=== PATIENT | female | born 1980 | race Caucasian/White ===

== ENCOUNTER 2021-07-21 01:32 | Emergency (ER) | payer OTHER ==
[~2021-07-21] VITALS: Ht 172.7 cm; Wt 95.7 kg
[2021-07-21] MEDS ORDERED: ONDANSETRON ODT4 MG PO (04:28)
[2021-07-21] MEDS ORDERED: OXYCODONE HCL5 MG PO (04:28)
[2021-07-22] MEDS ORDERED: HYDROXYZINE HCL50 MG PO (11:52)
== END 2021-07-21 04:55 | disposition home or self-care (01) ==
LOC: ED 01:32
DX: K80.20 Calculus of gallbladder without cholecystitis without obstruction (principal)
CPT/HCPCS: 36415; 76705; 80053; 81001; 83690; 84703; 85025; 96374; 96375; 99284-25; J2270; J2405

== ENCOUNTER 2021-07-22 11:30 | Observation (INO) | payer OTHER ==
[~2021-07-22] VITALS: Ht 170.2 cm; Wt 94.7 kg
--- NOTE | ~2021-07-22 | OR ---
[facility] [address], [place] [address] Draft DATE OF OPERATION: 07/23/2021 SURGEON: Marcia Tabares MD PREOPERATIVE DIAGNOSIS: Acute calculous cholecystitis. POSTOPERATIVE DIAGNOSIS: Acute calculous cholecystitis. PROCEDURE: 1. Laparoscopic cholecystectomy with intraoperative cholangiogram. 2. Surgeon-directed fluoroscopy. ANESTHESIA: General endotracheal, Augustin Alyson, NEEDLE FELT MAKING MACHINE OPERATOR, and local 20 mL of 0.25% Marcaine with epinephrine. INDICATIONS: This 41-year-old white woman presented to the emergency room for the 2nd time in 48 hours yesterday with severe right upper abdominal pain. She has known to have gallstones. Repeat gallbladder ultrasound confirms stones, thickened gallbladder wall, and findings consistent with acute calculous cholecystitis. She has been fluid resuscitated, given intravenous antibiotics, pain medication, so for now is to undergo cholecystectomy preferred by laparoscopic approach. The risks of bleeding, infection, bile duct injury, need for open procedure and need for other indicated procedures were reviewed in detail with her. She understands and wished to proceed. FINDINGS: The gallbladder was quite markedly inflamed and edematous. Once excised, multiple small and moderate-sized gallstones were noted. Cholangiogram was normal. The liver was normal. The operation proceeded without problem. DESCRIPTION OF PROCEDURE: The patient was brought to the operating room, given a general endotracheal anesthetic. Preoperative antibiotic Ancef had been given. Sequential compression device stockings were used and heparin subcutaneously administered. The abdomen was prepared with a chlorhexidine solution and draped sterilely. An infraumbilical incision was made and using an open Delphine cannula technique, pneumoperitoneum was achieved to a level of 14 mmHg of carbon dioxide gas. Intra-abdominal inspection showed no sign of ascites or PATIENT NAME: NATACHA BHAT OPERATIVE REPORT DATE OF : [birth year] REPORT #: [id number] PHYSICIAN: MARCIA TABARES MD PCP: JEANNE GONZALES PAC REPORT IS CONFIDENTIAL AND NOT TO BE RELEASED WITHOUT AUTHORIZATION [facility] [address], [place] [address] Draft carcinomatosis. The liver appeared normal. The gallbladder was distended and markedly edematous. Three additional trocars were placed in usual configuration in the subxiphoid, right midclavicular, and right anterior axillary line. The gallbladder was elevated cephalad and retracted laterally. Good visualization of the anatomy was noted. Using blunt and electrocautery dissection, very edematous peritoneum overlying the infundibulum was dissected free ultimately identifying the cystic duct and the cystic arterial branch as well. Once the cystic duct was cleared, a clip was applied across gallbladder cystic duct junction and transverse choledochotomy was made in the cystic duct. Egress of clear bile was noted. Using an Loera type cholangiocatheter, intraoperative cholangiography was undertaken showing free flow of contrast into the biliary tree with prompt emptying into the duodenum. Additional angles were used to assure that there was no sign of filling defect in the duct as the cholangiocatheter apparatus did obscure the duct in several places at some point. The cholangiogram was thus found to be totally normal. The catheter was removed and the cystic duct was quadruply clipped and divided and the gallbladder dissected free in a retrograde fashion using electrocautery. The gallbladder was placed in an Endobag and extracted through the infraumbilical port site and opened on the back table and found to have chronic inflammatory change of the mucosa as well as acute inflammation as well as a moderate sized multifaceted gallstones. Irrigation was undertaken in the subhepatic space. There was no sign of bile leak, bleeding, or other problems. Excess irrigation fluid was suctioned free. The trocars removed under direct visualization. The right midclavicular trocar site had a small amount of oozing, which was secured with cautery. Once hemostasis was assured in all trocar sites, pneumoperitoneum was relieved. The infraumbilical fascial incision was reapproximated with interrupted 0 Vicryl suture. All wounds were infiltrated with 0.25% Marcaine with epinephrine. The skin was closed with interrupted 3-0 Vicryl and Steri-Strips were applied. The patient was ultimately extubated and transported to the recovery room in good condition having suffered no complications. Sponge, needle, and instrument counts reported as correct x3. Marcia Tabares MD PATIENT NAME: NATACHA BHAT OPERATIVE REPORT DATE OF : [birth year] REPORT #: [id number] PHYSICIAN: MARCIA TABARES MD PCP: JEANNE GONZALES PAC REPORT IS CONFIDENTIAL AND NOT TO BE RELEASED WITHOUT AUTHORIZATION [address] [address] Draft /[facility] /[id number] cc: NABOR Tavares MD Copies: PATRICE LONG MD ~ PATIENT NAME: NATACHA BHAT OPERATIVE REPORT DATE OF : [birth year] REPORT #: [id number] PHYSICIAN: MARCIA TABARES MD PCP: JEANNE GONZALES PAC REPORT IS CONFIDENTIAL AND NOT TO BE RELEASED WITHOUT AUTHORIZATION
--- NOTE | ~2021-07-22 | DS ---
[facility] [address], [place] [address] Draft ADMISSION DATE: 07/22/2021 DISCHARGE DATE: 07/24/2021 REASON FOR ADMISSION: This 41-year-old woman works at the [employer] and presented to the emergency room for the second time in two days with complaints of severe right upper abdominal pain. She was evaluated by Dr. Schulte, who performed ultrasound confirming once again well-established gallstones. She is admitted for further evaluation and care. PERTINENT PHYSICAL EXAMINATION: GENERAL: A pleasant woman, who looked to be in rather significant distress. NECK: Trachea is midline. CHEST: Clear. HEART: Regular without murmur. ABDOMEN: Tender in the right upper abdomen. There is no palpable mass. No ascites. HOSPITAL COURSE: She was admitted, given intravenous fluid resuscitation, IV antibiotics, and maintain n.p.o. status. She did have some anxiety, which was well managed with Ativan. On July 23, 2021, she underwent laparoscopic cholecystectomy with intraoperative cholangiogram. She was found to have a markedly edematous and inflamed gallbladder. Cholangiogram was normal. She tolerated the procedure well. She had progressive improvement postoperatively, tolerating a regular diet, ultimately able to be discharged. DISCHARGE MEDICATION: 1. Percocet 7.5/325; 1-2 p.o. q.6 hours p.r.n. pain, #10. 2. Tylenol Extra Strength 1000 mg p.o. q.6 hours as needed for pain, #30. 3. Motrin 600 mg p.o. q.6 hours as needed for pain, #60. She will continue with the usual medication of: 1. Hydroxyzine 50 mg one-half to 1 at bedtime as needed for sleep anxiety. 2. Magnesium oxide 400 mg daily as needed. FOLLOWUP PLANS: She will call on Tuesday to set up an appointment to see me back in a month or so. She is advised to lift no more than 20 pounds for the next two weeks. She will keep Steri-Strips on. She is permitted to shower tomorrow. PATIENT NAME: NATACHA BHAT DISCHARGE SUMMARY DATE OF : [birth year] REPORT #: [id number] PHYSICIAN: MARCIA TABARES MD PCP: JEANNE GONZALES PAC REPORT IS CONFIDENTIAL AND NOT TO BE RELEASED WITHOUT AUTHORIZATION [address] [address] Draft DISCHARGE DIAGNOSES: 1. Acute calculous cholecystitis, chronic recurrent biliary colic, and ultimately acute calculous cholecystitis. 2. Anxiety disorder. MD CORRY Boyer/AMBROSIO /[id number] cc: Ramone Schulte MD Copies: RAMONE SCHULTE MD ~ PATIENT NAME: NATACHA BHAT DISCHARGE SUMMARY DATE OF : [birth year] REPORT #: [id number] PHYSICIAN: MARCIA TABARES MD PCP: JEANNE GONZALES PAC REPORT IS CONFIDENTIAL AND NOT TO BE RELEASED WITHOUT AUTHORIZATION
[~2021-07-22 11:30] MED LIST: ONDANSETRON ODT4 MG PO; OXYCODONE HCL5 MG PO
--- OUTSIDE RECORDS SUMMARY | 2021-07-22 11:38 | XMS ---
PreManage Notification: NATACHA BHAT Security Rn Vascular Events No recent Security Events currently on file CRITERIA MET - [facility] - 2 Visits in 30 Days CARE PROVIDERS [employer] Physician Service Tech Current PHONE: Unknown Jung has no Care Guidelines for this patient. E.Dave VISIT COUNT ([address] [facility] TOTAL 2 NOTE: Visits indicate total known visits. ED/UCC VISIT TRACKING (12 MO.) 07/22/2021 11:31 [facility] [place] TYPE: Emergency COMPLAINT: - ABDOMINAL PAIN, NAUSEA 07/21/2021 01:33 [facility] [place] TYPE: Emergency COMPLAINT: - ABD PAIN, N/V INPATIENT VISIT TRACKING (12 MO.) No inpatient visits to display in this time frame [email or web address]
[2021-07-22] MEDS ORDERED: HYDROXYZINE HCL50 MG PO (11:52)
--- NOTE | 2021-07-22 14:09 | NUR ---
REPORT RECEIVED FROM DUDLEY ROBERTSON. AWAITING PTS ARRIVAL TO MED/SURG
--- NOTE | 2021-07-22 14:19 | NUR ---
PT ARRIVED TO MED/SURG. PT STANDS AND AMBULATE FROM [place] TO RESTROOM AND THEN TO BED. PT STEADY ON FEET, NO ASSISTANCE NEEDED. PT REPROTS 4/10 "JUST NAGGING" PAIN IN RIGHT UPPER QUADRANT AT THIS TIME. PT DENEIS NEED FOR PAIN MEDICATION. PT REPROTS SHE IS A "LIGHT WEIGHT" AND WANTS VERY LITTLE OPIOID PAIN MEDICATION, HEAT PACK PROVIDED. PT ALERT AND ORDIENTED TO ALL. HEAR TONES REGULAR, LUNG SOUNDS CLEAR. CMS INTACT. ABDOMEN SOFT TO TOUCH BUT TENDER ESPICIALLY ON RIGHT SIDE. BOWEL TONES HEARD BUT HYPOACTIVE. PT REMAINS ON CLEAR LIQUID DIET. PT STARTED PERIOD TODAY, PADS PROVIDED. TATOOS PRESENT BUT SKIN OTHERWISE WNL. DR TABARES'S GALL BADDER PACK PROVIDED AND REIVEWED WITH PT IN DETAIL. PT VERBALIZES UNDERSTANDING AND STATES HER QUESTIONS HAVE BEEN ANSWERED. PT DENIES ADDITIONAL REQUESTS OR COMPLAINTS. CALL LIGHT WITHIN REACH. BED RAILS UP.
--- NOTE | 2021-07-22 14:59 | NUR ---
THIS RN TO ROOM TO CHECK ON PT. PTS BOYFRIEND, KEYONNA, ARRIVED. PT CONTINUES TO REPORT 4/10 PAIN IN RUQ AND BACK WELL MILD NAUSEA. PT CONTINUES TO DECLINE MEDICATION. HEAT PACK IN PLACE. FAMILY UPDATED. NO ADDITIONAL REQUESTS OR COMPLAINTS. CALL LIGHT WIHTIN REACH. BED RAILS UP.
--- NOTE | 2021-07-22 16:41 | NUR ---
THIS RN TO ROOM TO CHECK ON PT. PT REPORTS RUQ PAIN AT 5/10 AND ANXIETY. PT REPORTS THE ANXIETY IS THE "BIGGER PROBLEM" AND STATES IF SHE COULD DEAL WITH THE ANXIETY THE PAIN "WOULD PROBABLY BE BETTER." ATAVAN GIVEN, AT LOW DOSE. PT REPORTS HER AC IV IS "BOTHERING ME." PT REQUESTS A DIFFERENT IV SITE. 20G IV STARTED TO RIGHT HAND, BLOOD RETURN NOTED. IV FLUIDS MOVED TO RIGHT HAND. RIGHT AC IV FLUSHES WELL AND HAS GOOD BLOOD RETURN. R AC IV LEFT IN PLACE, SALINE LOCKED, ALCOHOL CAP APPLIED. PT DENIES NAUSEA. NO ADDITIONAL REQUSTS OR COMPLAINTS. CALL LIGHT WITHIN REACH. BED RAILS UP.
--- NOTE | 2021-07-22 17:50 | NUR ---
PT ADDMITTED THIS SHIFT FOR ACUTE CHOLEYCYSTITIS. CHOLECYSTECTOMY PLANNED FOR TOMORROW. PRN PAIN, ANXIETY AND NAUSEA MEDICATIONS GIVEN. PT UP IN ROOM INDEPENDANTLY. PT TOLERATING CLEAR LIQUID DIET WITH MINMAL APPITITE. ABOMDEN TENDER TO TOUCH WITH 4-5/10 PAIN IN RUQ AND BACK. PT ON HER PERIOD, PADS PROVIDED. PT ANTICIPATING SURGERY TOMORROW. NPO AT MIDNIGHT. PT VOIDING QUANITTY SUFFICIENT. PT USES CALL LIGHT AND MAKES NEEDS KNOWN.
--- NOTE | 2021-07-22 18:13 | NUR ---
THIS RN TO ROOM TO CHECK ON PT. PT RESTING IN BED. PT REPORTS FEELING "MUCH BETTER, THAT MEDICATION REALLY HELPED." PT REPORTS 4/10 RUQ PAIN AND DENIES NEED FOR PAIN MEDICAITON. PT DENIES NAUSEA. PTS DAUGHTER AT BEDSIDE, UPDATED ON PT STATUS AND PLAN OF CARE PER PT AND STATES HER QUESTIONS HAVE BEEN ANSWERED. PT DENIES ADDITIONAL REQUESTS OR COMPLAINTS. CALL LIGHT WITHIN REACH. BED RAILS UP.
--- NOTE | 2021-07-22 18:28 | NUR ---
ranjeet is laying in bed. given warm blanket. i&o and vitals charted. call light within reach. no further tasks at this time
--- NOTE | 2021-07-22 19:33 | NUR ---
IN ROOM FOR REPORT, PT IS AWAKE IN BED. SHE DENIES NEEDS AT THIS TIME. CALL LIGHT IS CLOSE.
--- NOTE | 2021-07-22 21:11 | NUR ---
IN ROOM TO ADMINISTER MEDICATIONS AND ASSESS PT. ADMINISTERED TORADOL FOR 6/10 PAIN. PT DENIES NAUSEA, FRESH ICEWATER PROVIDED TO REMINDED SHE IS NPO AT MIDNIGHT FOR SURGERY TOMORROW. PT DENIES FURTHER NEEDS AT THIS TIME. CALL LIGHT IS CLOSE.
--- NOTE | 2021-07-22 22:15 | NUR ---
IN TO GET VITALS, ICE WATER DONE
--- NOTE | 2021-07-23 00:32 | NUR ---
PT IS RESTING WITH EYES CLOSED, RR IS EVEN AND UNLABORED. CALL LIGHT IS CLOSE AND IV IS INFUSING FINE. WATER TAKEN AWAY FROM BEDSIDE FOR NPO STATUS.
--- NOTE | 2021-07-23 02:44 | NUR ---
PT DENIES PAIN AT THIS TIME, VS ARE WNL. PT ALSO DENIES NAUSEA. IV FLUIDS ARE INFUSING FINE. PT DENIES FURTHER NEEDS, CALL LIGHT IS CLOSE.
--- NOTE | 2021-07-23 04:12 | NUR ---
IN ROOM TO ADMINISTER ANCEF, PT DENIES NEEDS AT THIS TIME. CALL LIGHT IS CLOSE.
--- NOTE | 2021-07-23 05:40 | NUR ---
IN TO GET VITALS, PT UP TO VOID RECENTLY, NO FURTHER NEEDS AT THIS TIME
--- NOTE | 2021-07-23 07:05 | NUR ---
IN ROOM TO HANG NEW BAG OF IV FLUID, PT REPORTS FEELING ALOT OF ANXIETY THIS MORNING ABOUT SURGERY. ADMINISTERED 0.5MG OF ATIVAN IV DILUTED SLOW PUSH. PT DENIES PAIN AND NAUSEA THIS AM AND DENIES FURTHER NEEDS. CALL LIGHT IS CLOSE.
--- NOTE | 2021-07-23 07:23 | NUR ---
REPORT RECEIVED FROM DUDLEY MCKEON, PT RESTING IN BED ON LEFT SIDE, DROWSY AND STATES ATAVAN IS "HELPING." PT DENIES NASUEA AT THIS TIME AND REPORTS 4/10 PAIN, DENIES NEED FOR PAIN MEDICATION. NO ADDITIONAL REQUESTS OR COMPLAINTS. FAMILY AT BEDSIDE. CALL LIGHT WITHIN REACH. BED RAILS UP.
--- NOTE | 2021-07-23 09:14 | NUR ---
MORNING ASSESSMENT AND MEDICATION DUE. PT RESTING IN BED, AWAKE, ALERT AND OREINTED TO ALL. PT REPROTS 4/10 PAIN IN RIGHT UPPER QUADRANT AND BACK. RIGHT HAND IV ASSESSED WNL. IV FLUIDS INFUSING. RIGHT AC IV SITE PREVIOUSLY DC'D BY AVIATION SUPPORT EQUIPMENT REPAIRER. GAUZE AND COBAN NO LONGER IN PLACE. SITE WNL. LUNG SOUNDS CLEAR. HEART TONES REGULAR. ABDOMENT SOFT BUT TENDER TO TOUCH. BOWEL TONES ACTIVE. PT REPORTS HER PERIOD CONTINUES AND IS NORMAL FOR HER. PT REPORTS SHE IS READY FOR A SHOWER. HIBACLENS PROVIDED. IV SITE COVERED. PT UP TO SHOWER INDEPENDANTLY, STEADY ON FEET, NO ASSISTANCE NEEDED. PT DEMONSTRATES USE OF CALL LIGHT. BOYFRIEND AT BEDSIDE. NO ADDIITONAL REQUESTS OR COMPLAINTS. CALL LIGHT WIHTIN REACH. BED RAILS UP.
--- NOTE | 2021-07-23 10:21 | NUR ---
THIS RN TO ROOM TO CHECK ON PT. PT FINISHED WITH SHOWER AND BACK TO BED. IV FLUIDS RESUMED. VITAL SIGNS STABLE. PRE OP CHECK LIST COMPLETE. JEWERLY REMOVED AND AT BEDSIDE WITH PTS BOYFRIEND. PT REPORTS 4/10 "UNCOMFORTABLE" PAIN IN RUQ AND BACK. PT DENIES NEED FOR PAIN MEDICATION AT THIS TIME STATING "IT'S MORE THE ANXIETY." PT REPORTS ATIVAN CONTINUES TO WORK. NO ADDITIONAL REQUESTS OR COMPLAINTS. CALL LIGHT WITHIN REACH. BED RAILS UP.
--- NOTE | 2021-07-23 10:24 | NUR ---
VITALS AND I&OS CHARTED. PATIENT HAS SHOWERED THIS MORNING. LINENS CHANGED AND S/O IN ROOM. CALL [facility] IN [place] REACH
--- NOTE | 2021-07-23 10:35 | NUR ---
It was my pleasure to meet with Bea and her boyfriend today and discuss her care while here in the hospital. Bea states "They are amazing, and right on top of it." She has no concerns expressed, she answers yes when asked about her call light being answered in a timely manner, medications being explained, and her satisfaction with the cleanliness of the room. She denies needs for assistance with medications, etc. on discharge. After completing her Case Management assessment, eBa denied further questions or concerns. She was alert and oriented to person, place and time, and she did answer questions appropriately. I did leave my contact information with her should she have a question or concern at a later time.
[2021-07-23] MEDS ORDERED: MAGOX 400400 MG PO (10:50)
--- NOTE | 2021-07-23 10:50 | NUR ---
MED REC COMPLETE
--- NOTE | 2021-07-23 11:17 | NUR ---
DR. TABAERS TO BEDSIDE TO ROUND ON PT. PT REPORTS ANXIETY IS OVER RULING THE PAIN AT THIS POINT. ADDITIONAL ATAVAN HELD AT THIS TIME SO THAT PT IS ALERT AND ABLE TO STAY INVOVLED WITH PRE OP CARES. IV ASSESSED, WNL, NO S/S OF PHLEBITIS NOTED. FAMILY UPDATED AND STATES THEIR QUETIONS HAVE BEEN ANSWERED. NO ADDITIONAL NEEDS AT THIS TIME. CALL LIGHT WITHIN REACH.
--- NOTE | 2021-07-23 12:17 | NUR ---
REPORT GIVEN TO SYLVIA, FIREBREAK CUTTER. LETI SCANED AND GIVEN BY SYLVIA. PT VERBALIZES UNDERSTANDING OF PLAN OF CARE. PT STATES HER QUESTIONS HAVE BEEN ANSWERED. PT TO OR.
--- NOTE | 2021-07-23 12:55 | NUR ---
up to br and returned to bed scds on and versed given.
--- NOTE | 2021-07-23 14:21 | NUR ---
07/23/21 1421 Jenny Meneses 1414 PATIENT ARRIVES TO PACU RESTING WITH EYES CLOSED. ORAL AIRWAY IN PLACE. RESP EVEN AND UNLABORED, MASK AT 6 LITERS. 1415 PATIENT ROLLING AROUND IN BED. DOES NOT FOLLOW COMMANDS, ORAL AIRWAY REMOVED. RESP EVEN AND UNLABORED, MASK CONTINUES AT 6 LITERS. 1420 PATIENT CONTINUES TO ROLL AROUND IN BED. DOES NOT FOLLOW COMMANDS. RESP EVEN AND UNLABORED, OXYGEN OFF. PATIENT REPOSITIONS SELF TO TO RIGHT/SIDE/ABD, BACK TO SLEEP.
--- NOTE | 2021-07-23 15:30 | NUR ---
PT ARRIVED FROM PACU. REPORT RECEIVED FROM DUDLEY NUNEZ. PT REPORTS PAIN AT 5/10 IN UPPER ABDOMEN AND NAUSEA. PT NOTED TO HAVE ~5ML YELLOW EMESIS. DR. TABARES CALLED NO MEDICATIONS ARE DUE AT THIS TIME. NEW ORDERS GIVEN. REPEAT BACK DONE AND ORDERS ENTERED. SEE MAR FOR MEDICATIONS GIVEN. ABDOMEN SOFT. STERI STRIPS IN PLACE OVER LAPAROSCOPIC SITES X4, SCANT RED DRAINAGE NOTED. EDGES WELL APRXOIMATED. HYPOACTIVE BOWEL TONES PRESENT. IV ASSESSED, IV FLUIDS STARTED. PT DROWSY BUT OTEHRWISE COMPLETE ORIENTED. PT TOELRATING ROOM AIR WITH OXYGEN SATUATIONS ABOVE 94%. CURRENTLY 100% WHILE PT IS SLEEPING. ASSESSEMNT OTHERWISE UNCHANGED. PT RESTING IN BED. CALL LIGHT WITHIN REACH. BED RAILS UP. FAMILY AT BEDSIDE.
--- NOTE | 2021-07-23 16:15 | NUR ---
REPORT GIVEN TO DUDLEY ANGEL, WHO IS ASSUMIGN CARE OF PT.
--- NOTE | 2021-07-23 16:30 | NUR ---
POST OP VITALS COMPLETED. PT REPORTING 7/10 PAIN, PERCOCET ADMINISTERED. FOCUS ASSESSMENT COMPLETED. LAP SITES WITH STERI STRIPS AND SCANT DRAINAGE. BOWEL TONES HYPOACTIVE. VITALS COMPLETED AND WNL. NO NAUSEA.
--- NOTE | 2021-07-23 17:49 | NUR ---
VITALS AND ASSESSMENT DUE. THIS RN TO ROOM. PT RESTING IN BED. PT REPORTS RUQ PAIN IS IMPROVING, NOW 6/10. ABDOMEN REMAINS SOFT. PT REPORTS NAUSEA HAS RESOVED. LAP SITES X4 HAVE EDGES WELL APROXIMATED, STERI STRIPS INTACT. VITAL SIGNS STABLE. NO ADDITIONAL REQUESTS OR COMPLAINTS. CALL LIGHT WITHIN REACH. BED RAILS UP.
--- NOTE | 2021-07-23 18:39 | NUR ---
VITALS AND ASSESSMENT DUE. THIS RN TO ROOM. PT RESTING IN BED, DROWSY BUT ORIENTED. PT REPORTS PAIN HAS IMPROVED NOW 06/11. PT STATES NASUEA HAS RESOLVED. IV ASSESSED, WNL, NO S/S OF PHELBITIS NOTED. LUGN SOUNDS CLEAR. HEART TONES REGULAR. ABDOMEN REMAINS TENDER TO TOUCH, BOWEL TONES ACTIVE. PT ADVANCE TO REGULAR DIET. TAKING SIPS OF WATER AND SMALL BITES OF FOOD. VERY MINIMAL APPITITE. PT REPORTS "I'M JUST TIRED." PT ENCORAUGED TO REST. NO ADDITIONAL REQUESTS OR COMPLAINTS. CALL LIGHT WITHIN REACH. BED RAILS UP.
--- NOTE | 2021-07-23 19:00 | NUR ---
PT POST OP DAY ZERO FOR CHOLECYSTECTOMY. PT INDEPENDANT IN ROOM AND STEADY ON FEET. PRN PAIN AND NAUSEA MEDICATIONS GIVEN WITH GOOD RESULTS. PT TOLERATES ROOM AIR WITH OXYGEN SATURAITONS ABOVE 94%. LAP SITES X4 TO ABOMDEN WNL, EDGES WELL APROXIMATED, STERI STRIPS INTACT. SCAN RED DRAINAGE SEEN FROM SITES. PT HAS MINIMA APPITTITE FOR REGULAR DIET THIS SHIFT, NAUSEA MEDICATIONS GIVEN. PT VOIDING QUANTITY SUFFICIENT. PT USES CALL LIGHT AND MAKES NEEDS KNOWN.
--- NOTE | 2021-07-23 20:09 | NUR ---
PT AWAKE, C/P 6/10 ABD PAIN, MEDICATED WITH TORADOL IV, PT UP TO BR, VOIDING LARGE AMONT OF YELLOW URINE. ON ROOM AIR, LUNGS CLEAR, ABD SOFT, TENDERM JOSE D, DENIES PASSING GAS. 4 LAP SITES WITH UMBUILICAL AREA W SS DRAINAGE. AMBULATED WELL, ALERT AND ORINETED, ATE ONLY 10% DINNER, TOLERATING LIQUIDS. IVF INFUSING R HAND, W/O PROBLEMS, ENCOURAGED TO AMBULATE
--- NOTE | 2021-07-23 21:30 | NUR ---
IN TO GET VS, SALTINES PROVIDED, ICE WATER FILLED, NO FURTHER NEEDS AT THIS TIME
--- NOTE | 2021-07-23 22:12 | NUR ---
EYES CLOSED, NO DISTRESS, HOB ELEVATED, NO FURTHER C/O PAIN. NO SOB IVF INFUSING W/O PROBLEMS, SCDS OFF, FLUIDS AND CALL LIGHT AT BEDSIDE, SIGNIFICANT OTHER IN ROOM.
--- NOTE | 2021-07-24 01:57 | NUR ---
IN TO GET VITALS, PT UP TO VOID, RN IN TO CHECK WITH PT, NO FURTHER NEEDS
--- NOTE | 2021-07-24 02:13 | NUR ---
Up to br, c/o abd pain, medicated with 2 NOrco tabs, abd soft, jonna, denies passing gas at thist rojelio. encouragted to go for walks. tolerating crackers and fluids well, no sob on return, IVF infusing w/o problems. uses call light, IVF infusing. scds in.family in room
--- NOTE | 2021-07-24 04:29 | NUR ---
Awake, watching tv, stated pain relieved, on room air, stated passing gas, abd ss with old drainage in place, abd soft, tender, IVF infusing, no c/o adverse reaction to IV abx. SCD's in place. call light and fluids at bedside, no emesis
--- NOTE | 2021-07-24 05:13 | NUR ---
Pt on room air, states passing gas, [address] with old drainage. abd soft, tender, has been medicated with Toradol x1 and PercocetX1 effective, tolerating diet and fluids well, ambulating in room, voiding QS, IVF infusing w/o problems, no c/o adverse reaction to abx. scds in place, Pleasant anc coop, looking forward to go home in am
--- NOTE | 2021-07-24 06:14 | NUR ---
up to br, voided, SCDS off at thist [facility]jel[facility]. has had them on most of this dhift. c/o abd pain 09/11, medicated with toradol 30mg iv. no c/o sob on return, coop wtih vitals
--- NOTE | 2021-07-24 09:42 | NUR ---
Patient is up to the bathroom at this time, trying to have a bowel movement. She has been in there for about 10 minutes, but wants to continue to sit and try. Advise her to call when back to bed, so that her AM medications can me given and her assessment completed, she verbalized understanding.
--- NOTE | 2021-07-24 10:07 | NUR ---
Patient back to bed, reporting having a BM and that her pain is now a 6/10, requesting pain medication. AM medications and Percocet 2 tablets given for pain. Assessment completed as well.
--- NOTE | 2021-07-24 10:43 | NUR ---
Patient up to the bathroom again. Independent in her room.
[2021-07-24] MEDS ORDERED: OXYCODON-ACETA1 EAC2 PO (11:07)
[2021-07-24] MEDS ORDERED: TYLENOL EXTRA500 MG PO (11:08)
--- NOTE | 2021-07-24 11:08 | PATH ---
[facility] [address] [place], [place] [address] Signed SPECIMEN(S): A GALLBLADDER WITH GALLSTONES SPECIMEN SOURCE: A. GALLBLADDER WITH GALLSTONES CLINICAL HISTORY: Cholelithiasis. Acute calculous cholecystitis. FINAL PATHOLOGIC DIAGNOSIS: Gallbladder, cholecystectomy: - Chronic cholecystitis with cholesterolosis. - Cholelithiasis. NAL:cml:C2NR MICROSCOPIC EXAMINATION: Histologic sections of all submitted blocks are examined by light microscopy. These findings, together with the gross examination, support the pathologic diagnosis. GROSS DESCRIPTION: The specimen, labeled "SO, gallbladder with stones," is received in formalin and consists of Specimen: Previously opened gallbladder. Dimensions: 8.0 x 4.2 x 0.9 cm. Serosa: Yellow-paz, smooth. Cystic Duct: Unobstructed, margin inked black and shaved. Calculi: Six yellow-paz, irregularly shaped calculi (0.6-1.1 cm in greatest dimension). Mucosa: Yellow-paz and velvety. Wall thickness: 0.6 cm. Lymph node: No pericystic lymph nodes are grossly identified. Additional: None. Footwear Sales Representative sections are submitted in cassette (A1). AC (under the direct supervision of a pathologist) The Gross Description was prepared using a voice recognition system. The report was reviewed for accuracy; however, sound-alike word errors, addition and/or deletions may occur. If there is any question about this report, please contact Client Services. PERFORMING LABORATORY: The technical component was performed by [employer], Mirian Turner, PATIENT NAME: NATACHA BHAT PATHOLOGY DATE OF : 82 REPORT #: [id number] PHYSICIAN: NURIS WELDON PCP: JEANNE GONZALES PAC REPORT IS CONFIDENTIAL AND NOT TO BE RELEASED WITHOUT AUTHORIZATION [facility] [address] [place], [place] [address] [place] [address] (CLIA# [id number]). Professional interpretation was performed by [facility], [address] [address] (CLIA# [id number]). Diagnostician: Rose Álvarez MD Pathologist Electronically Signed 07/24/2021 Copies: ~ PATIENT NAME: NATACHA BHAT PATHOLOGY DATE OF : 82 REPORT #: [id number] PHYSICIAN: NURIS WELDON PCP: JEANNE GONZALES PAC REPORT IS CONFIDENTIAL AND NOT TO BE RELEASED WITHOUT AUTHORIZATION
[2021-07-24] MEDS ORDERED: MOTRIN IB200 MG PO (11:09)
--- NOTE | 2021-07-24 11:34 | NUR ---
IV access removed, discharge instructions discussed. Waiting for her ride at this time.
== END 2021-07-24 11:45 | disposition home or self-care (01) ==
LOC: ED 11:30 → MS 11:32
PROVIDERS: ADMIT Surgery; ATTEND Surgery
PROC: BF12YZZ Fluoroscopy of Gallbladder using Other Contrast (ICD-10-PCS; 2021-07-23)
PROC: 0FT44ZZ Resection of Gallbladder, Percutaneous Endoscopic Approach (ICD-10-PCS; principal; 2021-07-23 13:30)
DX: K80.66 Calculus of gallbladder and bile duct with acute and chronic cholecystitis without obstruction (principal); Z20.822 Contact with and (suspected) exposure to COVID-19
CPT/HCPCS: 36415; 74300; 80053; 83690; 85025; 96374; 96375; 99284-25; C9803; J0690; J1100; J1644; J1885; J2001; J2060; J2250; J2270; J2405; J2550; J2704; J3010; J7030; J7121; Q9967; U0003